=== PATIENT | male | born 2000 | race Caucasian/White ===

== ENCOUNTER 2025-03-10 09:21 | Emergency (ER) | payer SELFPAY ==
[2025-03-10 09:33] VITALS: BP 113/67; PULSE 82; RESP 16; TEMP 36.7; O2SAT 98
== END 2025-03-10 09:46 | disposition left against medical advice (07) ==
LOC: EXPGOSH 09:23
PROVIDERS: Emergency Provider Nurse Practitioner
DX: Z53.21 Procedure and treatment not carried out due to patient leaving prior to being seen by health care provider (principal)
CPT/HCPCS: 99199

== ENCOUNTER 2025-03-10 10:01 | Emergency (ER) | payer SELFPAY ==
[2025-03-10 10:06] VITALS: BP 126/79; PULSE 72; RESP 18; TEMP 36.6; O2SAT 100
--- NOTE | 2025-03-10 10:17 | ED.WOUNDLAC ---
HPI - Wound/Laceration General Chief Complaint: Wound/Laceration Stated Complaint: head lac\ Time Seen by Provider: 03/10/25 10:05 Source: patient Mode of arrival: ambulatory Limitations: no limitations History of Present Illness HPI narrative: Patient is a 25-year-old male who presents the ED with report of a scalp laceration. 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 Sustained a small laceration to his posterior scalp. Denied LOC. Denies significant pain. Denies dizziness, lightheadedness, vision changes, nausea, vomiting. Denies neck pain. Denies any other injuries. Tetanus is up-to-date. Related Data Home Medications ?Medication ?Instructions ?Recorded ?Confirmed ?Last Taken ?Type No Home Medications 03/10/25 03/10/25 Unknown History Allergies Allergy/AdvReac Type Severity Reaction Status Date / Time No Known Allergies Allergy Verified 03/10/25 10:02 Review of Systems Review of Systems: All systems reviewed & are unremarkable except as noted in HPI. All systems reviewed & are unremarkable except as noted in HPI and below Exam Narrative: GENERAL: Well appearing, well-nourished, non-toxic, in no acute distress. HEAD: Normocephalic. 1cm linear horizontal laceration to posterior scalp/upper occipital region. No active bleeding. Mild surrounding contusion with tenderness. EYES: PERRL/EOMI RESPIRATORY: Airway patent, respirations nonlabored CARDIOVASCULAR: Regular rate and rhythm MUSCULOSKELETAL: Moves all extremities. No gross deformities. SKIN: Warm, dry, normal color. NEURO: A&O X3. Speech clear. Cranial nerves II-XII grossly intact. Steady gait. No ataxic movements. No focal deficits. PSYCHIATRIC: Appropriate mood and affect. Normal interaction. Course Vital Signs Vital signs: Vital Signs Temperature 97.8 F 03/10/25 10:06 Pulse Rate 72 03/10/25 10:06 Respiratory Rate 18 03/10/25 10:06 Blood Pressure 126/79 03/10/25 10:06 Pulse Oximetry 100 03/10/25 10:06 Oxygen Delivery Room Air 03/10/25 10:06 Temperature 97.8 F 03/10/25 10:06 Pulse Rate 72 03/10/25 10:06 Respiratory Rate 18 03/10/25 10:06 Blood Pressure 126/79 03/10/25 10:06 Pulse Oximetry 100 03/10/25 10:06 Oxygen Delivery Room Air 03/10/25 10:06 Procedures Laceration Laceration 1: Date: 03/10/25 Time: 10:15 Site: scalp Size (cm): 1 Description: linear Depth: simple, single layer Local Anesthetic: none Pre-repair: wound explored and irrigated ====== Skin Level ====== Skin layer closed with: aman (#2) ====== Subcutaneous Layer ====== ====== Muscle Layer ====== ====== Tendon Layer ====== MDM - Wound/Laceration MDM Narrative Medical decision making narrative: Patient presented to ED with scalp laceration. Neurovascularly intact. No focal deficits. No LOC. Tetanus up-to-date. Patient is negative by [place] head CT rules. Denying any red flag symptoms. Discussed obtaining CT of brain, however patient does not feel this is necessary. Laceration was repaired with 2 aman without complications. No other injuries. Patient given wound care instructions and reasons to return. Discharged in stable condition. Medical Records Attestation: I reviewed the patient's medical records. Discharge Plan Discharge Clinical Impression: Laceration of scalp Qualifiers: Encounter type: initial encounter Qualified Code(s): S01.01XA - Laceration without foreign body of scalp, initial encounter Patient Disposition: Home Condition: Stable Instructions: Antibiotic Form, Scalp Contusion in Adults (ED), Staple Care (ED), Head Laceration (ED) Additional Instructions: You received 2 aman in your scalp today. Your aman will need to be removed in 1 week. Recommend ice to head, Tylenol/ibuprofen as needed for pain. Return to the ED if you experience recurrent injury or bleeding, severe pain, dizziness, passing out, unable to keep down food or drink, or any other symptoms of concern. Patient Language: Chinese Prescriptions: No Action No Home Medications Follow-up/Referrals: PHYSICIAN,ALLERGIST/PEDIATRIC PULMONOLOGIST [Non-Staff] - Time of Disposition: 10:20
--- OUTSIDE RECORDS SUMMARY | 2025-03-10 10:45 | XMS_ITS | Clinical Summary ---
Author Organization [employer] Address [address] 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
--- OUTSIDE RECORDS SUMMARY | 2025-03-10 10:45 | XMS_ITS | Encounter Summary ---
Author Organization [employer] Address 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
--- OUTSIDE RECORDS SUMMARY | 2025-03-10 10:45 | XMS_ITS | Encounter Summary ---
Author Organization [employer] Address 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
--- OUTSIDE RECORDS SUMMARY | 2025-03-10 10:45 | XMS_ITS | Clinical Summary ---
Author Organization [facility] Address [address] [place] [address] Care Team Providers Care Timber Management Professor Name Role Phone Christin Reese MD Primary Care Provider [phone] Allergies No known active allergies Medications moxifloxacin (VIGAMOX) 0.5 % ophthalmic solution Administer 1 drop into the right eye 3 (three) times a day 3 mL 2 Active Active Problems Problem Noted Date Diagnosed Date Pain in wrist 12/16/2014 Medical History Medical History Date Comments Hx Other Medical tubes in ears 2 Hx Other Medical Pinin Scaphoid 06/2014 Family History Medical History Relation Name Comments Cancer Mother Family history of malignant neoplasm - (Added by TW Conv) Relation Name Status Comments Mother Social History Tobacco Use Types Packs/Day Years Used Date Smoking Tobacco: Never Sex and Gender Information Value Date Recorded Sex Assigned at Not on file 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 Gender Identity Not on file Sexual Orientation Not on file Obstetrics History Last Filed Vital Signs Vital Sign Reading Time Taken Comments Blood Pressure 123/69 04/08/2022 3:30 AM CDT Pulse 72 04/08/2022 3:30 AM CDT Temperature 36.8 C (98.2 F) 04/07/2022 7:58 PM CDT Respiratory Rate 18 04/07/2022 7:58 PM CDT Oxygen Saturation 98% 04/08/2022 3:30 AM CDT Inhaled Oxygen Concentration - - Weight 68 kg (150 lb) 04/07/2022 7:56 PM CDT Height 172.7 cm (5' 8 ) 04/07/2022 7:56 PM CDT Body Mass Index 22.81 04/07/2022 7:56 PM CDT Plan of Treatment Health Maintenance Due Date Last Done Comments Depression Screening 1999 Hepatitis C Screening 1999 DTaP/Tdap/Td Vaccine (1 - Tdap) 2010 Varicella Vaccines (1 of 2 - 13+ 2-dose series) 2012 HPV Vaccines (1 - Male 3-dos e series) 2014 Hepatitis B Screening 2017 Regular Well Visit/Exam 18-64 2017 Influenza Vaccine (#1) 2024 Pneumococcal vaccine <65 Aged Out No longer eligible based on patient's age to complete this topic Insurance CMR Care Teams Timber Management Professor Relationship Specialty Start Date End Date Christin Reese MD PCP - General 12/05/14
--- OUTSIDE RECORDS SUMMARY | 2025-03-10 10:45 | XMS_ITS | Clinical Summary ---
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 Gender Identity Not on file Sexual Orientation Not on file Plan of Treatment Health Maintenance Due Date Last Done Comments Hepatitis C Virus (HCV) Screening 1999 TdaP Immunization 1999 Human Papillomavirus (HPV) Immunization (1 - Male 3-dose series) 2014 Hepatitis B Immunization (1 of 3 - 19+ 3-dose series) 2018 Influenza Immunization (#1) 2024 SARS-COV-2 Immunization ( - season) 2024 Respiratory Syncytial Virus (RSV) Immunization (Adult) (1 - 1-dose 75+ series) 2074 Meningococcal Immunization (ACWY) Completed 015 Pneumococcal Immunization Combined Aged Out No longer eligible based on patient's age to complete this topic Rotavirus Immunization Aged Out No lo nger eligible based on patient's age to complete this topic
--- OUTSIDE RECORDS SUMMARY | 2025-03-10 10:45 | XMS_ITS | Encounter Summary ---
Author Organization [facility] Address [address] [place] [address] Phone Care Team Providers Care Deputy General Counsel Name Role Phone Christin Reese MD Primary Care Provider Encounter Details Date Type Department Care Team (Late st Contact Info) Description 04/08/2022 Ophth Exam [facility] [address] [place] [address] 1[address] [place] [id number] Alisha Huerta MD PhD [address] [facility] [address] [place], [place] [id number] Social History Tobacco Use Types Packs/Day Years Used Date Smoking Tobacco: Never Sex and Gender Information Value Date Recorded Sex Assigned at Not on file 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 Gender Identity Not on file Sexual Orientation Not on file documented as of this encounter Plan of Treatment Not on file documented as of this encounter Visit Diagnoses Not on filedocumented in this encounter Eye Exam Visual Acuity Right eye Left eye Near sc 20/400 ph 20/100 20/20 [facility] checked after attempted removal of FB by ED with Q-tip Tonometry (Tonopen, 2:13 AM) Right eye Left eye Pressure 16 16 Pupils Dark Light Shape React APD Right eye 5 3 Round Brisk None Left eye 5 3 Round Brisk None Visual Jones Right eye Left eye Full Full Extraocular Movement Right eye Left eye Full Full Dilation Both eyes: 1.0% Mydriacyl, 2 .5% Phenylephrine @ 2:15 AM External Exam Right eye Left eye External Normal Normal Slit Lamp Exam Right eye Left eye Lids/Lashes Normal Normal Conjunctiva/Sclera Trace injection White and agus et Cornea Center <1mm foreign body, metal, with surrounding stromal edema. Surrounding epi defect. No infiltrate. Chuckie negative after removal. Rust ring remaining after removal. Clear Anterior Chamber Deep and quiet Deep and quiet Iris Round and reactive Round and harman ctive Lens Clear Clear Vitreous Normal Normal Fundus Exam Right eye Left eye Disc Normal, no pallor, no edema Norm al, no pallor, no edema C/D Ratio 0.1 0.1 Macula Normal, flat Normal Vessels Normal Normal Periphery Normal Normal Care Teams Deputy General Counsel Relationship Specialty Start Date End Date Christin Reese MD PCP - General 12/05/14 documented as of this encounter
--- OUTSIDE RECORDS SUMMARY | 2025-03-10 10:45 | XMS_ITS | Referral Summary ---
Author Organization [facility] Address [address] [place] [address] Care Team Providers Care Keyboard Action Assembler Name Role Phone Christin Reese MD Primary Care Provider [phone] Allergies No known active allergies Medications moxifloxacin (VIGAMOX) 0.5 % ophthalmic solution Administer 1 drop into the right eye 3 (three) times a day 3 mL 2 Active Active Problems Problem Noted Date Diagnosed Date Pain in wrist 12/16/2014 Social History Tobacco Use Types Packs/Day Years Used Date Smoking Tobacco: Never Sex and Gender Information Value Date Recorded Sex Assigned at Not on file 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
--- OUTSIDE RECORDS SUMMARY | 2025-03-10 11:18 | XMS_ITS | Encounter Summary ---
Author Organization [employer] Address 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
--- OUTSIDE RECORDS SUMMARY | 2025-03-10 11:18 | XMS_ITS | Encounter Summary ---
Author Organization [employer] Address 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
--- OUTSIDE RECORDS SUMMARY | 2025-03-10 11:18 | XMS_ITS | Encounter Summary ---
Author Organization [facility] Address [address] [place] [address] Phone Care Team Providers Care Electrician Helper Powerhouse Name Role Phone Christin Reese MD Primary Care Provider [phone] Encounter Details Date Type Department Care Team (Late st Contact Info) Description 04/08/2022 Ophth Exam [facility] [address] [place] [address] 1[address] [place] [id number] Alisha Huerta MD PhD [address] [facility] [facility] [facility] [address] [address] [place], [place] [id number] Social History Tobacco Use Types Packs/Day Years Used Date Smoking Tobacco: Never Sex and Gender Information Value Date Recorded Sex Assigned at Not on file 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
--- OUTSIDE RECORDS SUMMARY | 2025-03-10 11:18 | XMS_ITS | Referral Summary ---
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
--- OUTSIDE RECORDS SUMMARY | 2025-03-10 11:18 | XMS_ITS | Clinical Summary ---
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
--- OUTSIDE RECORDS SUMMARY | 2025-03-10 11:18 | XMS_ITS | Clinical Summary ---
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
--- OUTSIDE RECORDS SUMMARY | 2025-03-10 11:18 | XMS_ITS | Clinical Summary ---
Author Organization [employer] Address [address] 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
== END 2025-03-10 10:32 | disposition home or self-care (01) ==
LOC: ANHED 10:28
PROVIDERS: Emergency Provider Physician Assistant
DX: S01.01XA Laceration without foreign body of scalp, initial encounter (principal); W20.8XXA Other cause of strike by thrown, projected or falling object, initial encounter
CPT/HCPCS: 12001; 99282